=== PATIENT | male | born 1980 | race Caucasian/White ===

== ENCOUNTER 2019-08-12 13:37 | Emergency (ER) | payer BC, SELFPAY ==
[~2019-08-12] VITALS: Ht 182.9 cm; Wt 90.7 kg
[2019-08-12 15:15] VITALS: BP 102/76; Ht 182.9 cm; Wt 90.7 kg
== END 2019-08-12 15:45 | disposition home or self-care (01) ==
LOC: ED 13:37
DX: U07.1 COVID-19 (principal)
CPT/HCPCS: U0003-CS